=== PATIENT | male | born 1965 | race Caucasian/White ===

== ENCOUNTER 2022-02-12 17:40 | Outpatient (CLI) | payer BC, SELFPAY ==
--- NOTE | 2022-02-12 17:52 | XR_ITS ---
WS: [id number] Lumbar spine, 3 views, 02/12/2022 Clinical Data: LOW BACK PAIN, UNSPECIFIED, ANESTHESIA OF SKIN Comparison: Lumbar spine, 05/29/2015. Findings: No compression fractures or subluxation is seen. No disc space narrowing is seen. The transverse proc esses and SI joints are normal. There is minimal anterior osteoarthritic spurring from L1 through L5. 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
== END 2022-02-12 17:41 | disposition home or self-care (01) ==
PROVIDERS: PCP Nurse Practitioner Family; Visit Provider Nurse Practitioner Family
DX: M54.50 Low back pain, unspecified (principal); R20.0 Anesthesia of skin
CPT/HCPCS: 72100